=== PATIENT | male | born 1975 | race Caucasian/White ===

== ENCOUNTER 2024-02-24 09:35 | Emergency (ER) | payer OTHER ==
[~2024-02-24] VITALS: Ht 175.3 cm; Wt 88.0 kg
[~2024-02-24 09:35] MED LIST: DIPHENHYDRAMINE25 M1 PO; FAMOTIDINE20 MG PO; HYDROCHLOROTHIA25 MG PO; IBUPROFEN800 MG PO; LIBRAX CAPSULE1 EACH PO; LISINOPRIL-HCT1 EAC1 PO; LISINOPRIL20 MG PO; NASAL DECONGEST30 ML NAS; NORCO 7.5-3251 EACH PO; ONDANSETRON ODT4 MG SL; OXAPROZIN600 MG PO; OXYCODON-ACETA1 EAC2 PO; PERCOCET 10-321 EACH PO; PERCOCET 5-3251 EACH PO; PRILOSEC20 MG PO; PROTONIX40 MG PO; SERTRALINE HCL100 MG PO; SERTRALINE HCL50 MG PO; TRAZODONE HCL100 MG PO; ZOFRAN ODT8 MG PO
[2024-02-24] MEDS ORDERED: DULOXETINE HCL60 MG PO (11:59)
[2024-02-24] MEDS ORDERED: IRBESARTAN75 MG PO (11:59)
[2024-02-24] MEDS ORDERED: SODIUM CHLORIDE 0.9% 1,000 ML IV ONE (12:00)
[2024-02-24] MEDS ORDERED: ondansetron HCL 4 MG/2 ML VIAL IV ONE (12:00)
[2024-02-24] MEDS ORDERED: TRIAMCINOLONE A15 G1 TOP (12:00)
[2024-02-24] MEDS ORDERED: PROPRANOLOL HCL20 MG PO (12:00)
[2024-02-24] MEDS ORDERED: TAMSULOSIN HCL0.4 MG PO (12:00)
[2024-02-24] MEDS ORDERED: TRIAMCINOLONE A15 GM TOP (12:00)
[2024-02-24] MEDS ORDERED: KETOROLAC TROMETHAMINE 30 MG/ML VIAL IV ONE (12:15)
[2024-02-24 12:24] LABS: BILIRUBIN, URINE NEGATIVE (negative); BLOOD/HGB, URINE NEGATIVE (Negative); KETONE, URINE NEGATIVE (Negative); LEUK ESTERASE, URINE NEGATIVE (negative); NITRITE, URINE NEGATIVE (negative)
[2024-02-24 12:26] LABS: BASOPHILS 3.6 % (0-2); EOSINOPHILS 6.1 % (0-6); HEMATOCRIT 40.2 % (35.0-50.0); HEMOGLOBIN 13.8 g/dL (12.0-18.0); LYMPHOCYTES 12.8 % (24-44); MCH 32.2 (27-36); MCHC 34.3 g/dl (30-36); MCV 93.8 fl (81-99); MONOCYTES 6.7 % (0-12); NEUTROPHILS 70.8 % (39-80); PLATELET COUNT 163 K/uL (140-440); RBC 4.28 M/ul (4.3-5.7); RDW 13.6 (10.5-15.0)
[2024-02-24 12:39] LABS: ALBUMIN 3.8 g/dL (3.4-5.0); ALBUMIN/GLOBULIN RATIO 1.12 (1.1-2.4); ANION GAP 10.4 (7-21); BILIRUBIN, TOTAL 0.8 ng/dL (0.2-1.0); BUN/CREATININE RATIO 12.34 (6.0-28.6); CALCIUM 8.7 mg/dL (8.5-10.1); CREATININE, SERUM 0.81 mg/dL (0.70-1.30); POTASSIUM 3.4 mmol/L (3.5-5.1); PROTEIN, TOTAL 7.2 g/dL (6.4-8.2)
[2024-02-24 14:33] VITALS: BP 161/103
== END 2024-02-24 14:35 | disposition home or self-care (01) ==
LOC: ED 09:35
PROVIDERS: Emergency Medicine
DX: K62.5 Hemorrhage of anus and rectum (principal); K64.8 Other hemorrhoids; F17.200 Nicotine dependence, unspecified, uncomplicated; Z88.0 Allergy status to penicillin; Z88.8 Allergy status to other drugs, medicaments and biological substances; Z79.899 Other long term (current) drug therapy
CPT/HCPCS: 36415; 74177; 80053; 81003; 83690; 85025; 96375; 99284-25; J1885; J2405; J7030; Q9967

== ENCOUNTER 2024-07-06 10:44 | Emergency (ER) | payer OTHER ==
[~2024-07-06] VITALS: Ht 175.3 cm; Wt 81.2 kg
[~2024-07-06 10:44] MED LIST changes: +DULOXETINE HCL60 MG PO; +IRBESARTAN75 MG PO; +PROPRANOLOL HCL20 MG PO; +TAMSULOSIN HCL0.4 MG PO; +TRIAMCINOLONE A15 G1 TOP; +TRIAMCINOLONE A15 GM TOP
[2024-07-06] MEDS ORDERED: PROPRANOLOL HCL10 MG PO (11:06)
[2024-07-06 11:22] LABS: CORONAVIRUS COVID-19 AG NEGATIVE (NEGATIVE); INFLUENZA A AG NEGATIVE (NEGATIVE); INFLUENZA B AG NEGATIVE (NEGATIVE)
[2024-07-06] MEDS ORDERED: ACETAMINOPHEN 500 MG TAB PO ONE (11:30)
[2024-07-06] MEDS ORDERED: DOXYCYCLINE HY100 MG PO (11:51)
[2024-07-06] MEDS ORDERED: ONDANSETRON ODT8 MG PO (11:51)
[2024-07-06 11:57] VITALS: BP 123/69
[2024-07-06] MEDS ORDERED: DOXYCYCLINE HYCLATE 100 MG CAP PO ONE (12:00)
== END 2024-07-06 11:58 | disposition home or self-care (01) ==
LOC: ED 10:44
PROVIDERS: Emergency Medicine
DX: J18.9 Pneumonia, unspecified organism (principal); F17.200 Nicotine dependence, unspecified, uncomplicated; Z88.0 Allergy status to penicillin; Z88.8 Allergy status to other drugs, medicaments and biological substances; Z79.899 Other long term (current) drug therapy
CPT/HCPCS: 36415; 71045; 99283-25; A9270

== ENCOUNTER 2024-07-17 13:08 | Emergency (ER) | payer OTHER ==
[~2024-07-17] VITALS: Ht 175.3 cm; Wt 82.1 kg
[~2024-07-17 13:08] MED LIST changes: +DOXYCYCLINE HY100 MG PO; +ONDANSETRON ODT8 MG PO; +PROPRANOLOL HCL10 MG PO
--- OUTSIDE RECORDS SUMMARY | 2024-07-17 13:15 | XMS ---
PreManage Notification: KEVIN MENJIVAR Security Manager Outpatient Events No recent Security Events currently on file CRITERIA MET - [facility] - 2 Visits in 30 Days CARE PROVIDERS -[facility]: Permit Review Assistant Current [facility] PHONE: [phone] JOSE [facility] [address]/Center: [facility] FAMILY PHONE: [phone] RADHA CARCAMO Nurse Practitioner: Family Current PHONE: [phone] Prerna has no Care Guidelines for this patient. [facility] VISIT COUNT (12 MO.) 3 [facility] [place] TOTAL 3 NOTE: Visits indicate total known visits. ED/UCC VISIT TRACKING (12 MO.) 07/17/2024 13:08 [facility] [place] TYPE: Emergency COMPLAINT: - DIZZINESS 07/06/2024 10:45 [facility] [place] TYPE: Emergency COMPLAINT: - SHORTNESS OF BREATH DIAGNOSES: - Allergy status to other drugs, medicaments and biological substances - Allergy status to penicillin - Myalgia, unspecified site - Nicotine dependence, unspecified, uncomplicated - Other mcc (current) drug therapy - Pneumonia, unspecified organism 02/24/2024 09:[address] [facility] [place] TYPE: Emergency COMPLAINT: - BLOOD IN STOOL DIAGNOSES: - Allergy status to other drugs, medicaments and biological substances - Allergy status to penicillin - Hemorrhage of anus and rectum - Melena - Nicotine dependence, unspecified, uncomplicated - Other hemorrhoids - Other meterman (current) drug therapy INPATIENT VISIT TRACKING (12 MO.) No inpatient visits to display in this time frame [email or web address]
[2024-07-17 14:42] LABS: BASOPHILS 0.9 % (0-2); EOSINOPHILS 0.2 % (0-6); HEMATOCRIT 41.5 % (35.0-50.0); HEMOGLOBIN 14.8 g/dL (12.0-18.0); LYMPHOCYTES 15.5 % (24-44); MCH 31.1 (27-36); MCHC 35.7 g/dl (30-36); MONOCYTES 11.9 % (0-12); NEUTROPHILS 71.5 % (39-80); PLATELET COUNT 557 K/uL (140-440); RBC 4.77 M/ul (4.3-5.7); RDW 13.4 (10.5-15.0)
[2024-07-17 14:58] LABS: ALBUMIN 3.9 g/dL (3.4-5.0); ALBUMIN/GLOBULIN RATIO 0.91 (1.1-2.4); ANION GAP 15.5 (7-21); BILIRUBIN, TOTAL 1.5 mg/dL (0.2-1.0); BUN/CREATININE RATIO 13.59 (6.0-28.6); CALCIUM 9.5 mg/dL (8.5-10.1); CREATININE, SERUM 1.03 mg/dL (0.70-1.30); MAGNESIUM 1.4 mg/dL (1.8-2.4); POTASSIUM 3.5 mmol/L (3.5-5.1); PROTEIN, TOTAL 8.2 g/dL (6.4-8.2)
[2024-07-17] MEDS ORDERED: MORPHINE SULFATE 4 MG/ML VIAL IV ONE (16:00)
[2024-07-17] MEDS ORDERED: PROCHLORPERAZINE EDISYLATE 10 MG/2 ML VIAL IV ONE (16:00)
[2024-07-17] MEDS ORDERED: diphenhydrAMINE HCL 50 MG/ML VIAL IV ONE ×3 (16:00→17:30)
[2024-07-17] MEDS ORDERED: MAGNESIUM SULFATE 2 GM/50 ML BAG IV ONE (16:15)
[2024-07-17] MEDS ORDERED: HALOPERIDOL LACTATE 5 MG/ML VIAL IV ONE ×2 (17:15→17:30)
[2024-07-17] MEDS ORDERED: SODIUM CHLORIDE 0.9% 1,000 ML IV PRN ×2 (17:15→17:30)
[2024-07-17] MEDS ORDERED: KETOROLAC TROMETHAMINE 15 MG/ML VIAL IV ONE (17:15)
[2024-07-17] MEDS ORDERED: MECLIZINE HCL25 MG PO (19:13)
[2024-07-17 19:29] VITALS: BP 135/87
== END 2024-07-17 19:29 | disposition home or self-care (01) ==
LOC: ED 13:08
PROVIDERS: Emergency Medicine
DX: R42 Dizziness and giddiness (principal); G43.909 Migraine, unspecified, not intractable, without status migrainosus; I10 Essential (primary) hypertension; F17.200 Nicotine dependence, unspecified, uncomplicated; Z88.8 Allergy status to other drugs, medicaments and biological substances; Z88.0 Allergy status to penicillin; Z79.899 Other long term (current) drug therapy
CPT/HCPCS: 36415; 80053; 83735; 85025; 96374; 96375; 96376; 99284-25; J0780; J1200; J1630; J1885; J2270; J3475; J7030

== ENCOUNTER 2025-05-11 11:52 | Emergency (ER) | payer OTHER ==
[~2025-05-11] VITALS: Ht 175.3 cm; Wt 87.0 kg
[~2025-05-11 11:52] MED LIST changes: +MECLIZINE HCL25 MG PO
[2025-05-11] MEDS ORDERED: LORazepam 2 MG/ML VIAL IV ONE (12:45)
[2025-05-11] MEDS ORDERED: SODIUM CHLORIDE 0.9% 1,000 ML IV PRN (13:30)
[2025-05-11 13:32] LABS: BASOPHILS 0.8 % (0.2-1.2); EOSINOPHILS 2.2 % (0.8-7.0); LYMPHOCYTES 16.0 % (21.8-53.1); MCH 31.9 PG (25.7-32.2); MCHC 35.1 g/dL (32.3-36.5); MCV 90.6 fL (79.0-92.2); MONOCYTES 11.7 % (5.3-12.2); NEUTROPHILS 68.9 % (34.0-67.9); RBC 4.27 M/uL (4.63-6.08)
[2025-05-11 13:40] LABS: ALT (SGPT) 142.0 U/L (14-59); AST (SGOT) 118.0 U/L (15-37); GLOMERULAR FILTRATION RATE,EST 84.0 mL/min (>60); PROTEIN, TOTAL 7.7 g/dL (6.4-8.2); UREA NITROGEN 16.0 mg/dL (7-18)
[2025-05-12] MEDS ORDERED: NALTREXONE HCL50 MG PO (09:03)
[2025-05-12] MEDS ORDERED: SUMATRIPTAN SUC25 MG PO (09:03)
== END 2025-05-11 14:49 | disposition home or self-care (01) ==
LOC: ED 11:52
PROVIDERS: Emergency Medicine
DX: F10.939 Alcohol use, unspecified with withdrawal, unspecified (principal); I10 Essential (primary) hypertension; F17.200 Nicotine dependence, unspecified, uncomplicated; Z88.0 Allergy status to penicillin; Z88.8 Allergy status to other drugs, medicaments and biological substances
CPT/HCPCS: 36415; 80053; 85025; 96374; 99284-25; J2060; J7030